=== PATIENT | male | born 1960 | race African-American/Black ===

== ENCOUNTER 2024-06-04 11:46 | Emergency (ER) | payer MEDICARE, MEDICAID ==
[~2024-06-04] VITALS: Ht 165.1 cm; Wt 70.0 kg
[~2024-06-04 11:46] MED LIST: AMLO5TAB4 PO; LEVO500T2 PO; METR500T PO
[2024-06-04 11:49] VITALS: TEMP 98.8; O2SAT 99
[2024-06-04] MEDS: DIPHENOXYLATE/ATROPINE 2.5/0.025MG TABLET PO ONE (12:33)
[2024-06-04] MEDS: PANTOPRAZOLE SODIUM 40 MG/VIAL IV STA (12:33)
[2024-06-04] MEDS: SODIUM CHLORIDE 0.9% 1,000 ML IV ONE (12:33)
[2024-06-04] MEDS: ONDANSETRON HCL 4MG/2ML INJ IV ONE (12:33)
[2024-06-04 12:36] LABS: BASOPHILS % 0.7 % (0.0-2.0); EOSINOPHILS % 0.5 % (0.0-5.0); HEMATOCRIT. 47.4 % (42.0-52.0); HEMOGLOBIN. 16.1 g/dL (14.0-18.0); LYMPHOCYTES % 18.9 % (20.0-50.0); MEAN CORPUSCULAR HEMOGLOBIN 32.3 pg (28.0-32.0); MEAN CORPUSCULAR HGB CONC 33.9 g/dL (31.0-37.0); MEAN CORPUSCULAR VOLUME 95.4 fL (80.0-94.0); MEAN PLATELET VOLUME 8.6 fl (7.4-10.4); MONOCYTES % 8.2 % (2.0-8.0); NEUTROPHILS % 71.7 % (40.0-76.0); PLATELET 210 x1000/uL (130-400); RED BLOOD CELL COUNT 4.97 mill/uL (4.7-6.1); RED CELL DISTRIBUTION WIDTH 13.5 % (11.6-14.6); WHITE BLOOD COUNT 7.2 x1000/uL (4.5-11.0)
[2024-06-04 12:44] LABS: CHLORIDE 103 mEq/L (98-107); SODIUM 138 mEq/L (136-145)
[2024-06-04 12:45] LABS: CALCIUM 9.6 mg/dL (8.7-10.4); CARBON DIOXIDE 25 mEq/L (21-32)
[2024-06-04 12:50] LABS: GLUCOSE 109 mg/dL (70-105); UREA NITROGEN BLOOD 13 mg/dL (9-23)
[2024-06-04] MEDS ORDERED: TOPUD MT (14:39)
[2024-06-04] MEDS ORDERED: DIPH1TAB24 MT (14:39)
[2024-06-04] MEDS ORDERED: PANT40SU MT (14:39)
[2024-06-04] MEDS ORDERED: ONDA4TAB50 MT (14:40)
[2024-06-04 14:46] VITALS: BP 130/70; PULSE 80; RESP 14
== END 2024-06-04 14:47 | disposition home or self-care (01) ==
LOC: ER 11:46
DX: K52.9 Noninfective gastroenteritis and colitis, unspecified (principal); F31.9 Bipolar disorder, unspecified; K21.9 Gastro-esophageal reflux disease without esophagitis; I10 Essential (primary) hypertension; F20.9 Schizophrenia, unspecified
CPT/HCPCS: 99284; 96365; 96375; 80048; 83690; 85025; 36415; J2405; J2470; J7030